=== PATIENT | female | born 1940 | race Caucasian/White ===

== ENCOUNTER 2018-12-27 12:16 | Outpatient (CLI) | payer MEDICARE, OTHER ==
--- NOTE | 2018-12-27 12:38 | RAD ---
EXAM: 2 views of the lumbosacral spine HISTORY: Low back pain COMPARISON: None FINDINGS: 2 views of the lumbosacral spine shows normal height and alignment of the vertebral bodies without fracture or subluxation. Moderate degenerative changes are seen throughout the lumbar spine with intervertebral disc space narrowing and osteophyte formation. Posterior facet arthrosis is seen in the lower lumbosacral spine. The sacroiliac joints are unremarkable. IMPRESSION: Degenerative changes of lumbar spine without acute osseous abnormality.
== END 2018-12-27 12:17 | disposition home or self-care (01) ==
LOC: BICRAD 12:16
PROVIDERS: ATTEND Internal Medicine Rheumatology
DX: M47.16 Other spondylosis with myelopathy, lumbar region (principal)
CPT/HCPCS: 72100

== ENCOUNTER 2019-01-09 10:13 | Outpatient (CLI) | payer MEDICARE ==
--- NOTE | 2019-01-09 12:22 | MRI ---
MR the lumbar spine without contrast INDICATION: Lumbar spondylosis with myelopathy COMPARISON: None. TECHNIQUE: Multiplanar multisequence MR images were obtained of lumbar spine without IV contrast. FINDINGS: Bone marrow: There are laminectomy changes involving the left L4 and L5 vertebral levels. Bone marrow signal intensity appears within normal limits. Distal spinal cord and conus: Normal. The conus seen to terminate at L1. Visualized retroperitoneum and paraspinal soft tissues: There is an 8 mm cyst involving superior pole of the right kidney. Vertebral levels: L5-S1: There is a broad-based disc osteophyte complex with loss of disc space height inducing mild to moderate right and severe left neural foraminal narrowing.. L4-5: There is a broad-based disc osteophyte complex with facet joint degenerative change and loss of disc space height inducing mild right and moderate left neural foraminal narrowing L3-4: There is a broad-based disc bulge with facet hypertrophy inducing mild bilateral neural foramin al narrowing L2-3: There is a broad-based bulge with facet hypertrophy inducing mild right neural foraminal narrow ing L1-L2: There is a broad-based bulge with facet hypertrophy but no appreciable central canal or neural foraminal narrowing. T12-L1: There is a broad-based disc bulge but no appreciable central canal or neural foraminal narrow ing. IMPRESSION: 1. Moderate spondylosis of the lumbar spine. 2. Moderate right and severe left neural foraminal narrowing at L5-S1. 3. Mild right and moderate left neural foraminal narrowing at L4-5. 4. Mild bilateral neural foraminal narrowing at L3-4. 5. Mild right neural foraminal narrowing at L2-3.
== END 2019-01-09 10:14 | disposition home or self-care (01) ==
LOC: BICMRI 10:13
PROVIDERS: ATTEND Internal Medicine Rheumatology
DX: M47.16 Other spondylosis with myelopathy, lumbar region (principal); M48.07 Spinal stenosis, lumbosacral region; M48.061 Spinal stenosis, lumbar region without neurogenic claudication
CPT/HCPCS: 72148

== ENCOUNTER 2019-02-25 08:37 | Outpatient (CLI) | payer MEDICARE ==
--- NOTE | 2019-02-25 10:19 | MRI ---
EXAM: MRI Thoracic Spine WO Con PROVIDED CLINICAL HISTORY: Bilateral leg weakness and back pain for 5 years. Symptoms are gradually getting worse. COMPARISON: None FINDINGS: There are postsurgical changes of the cervical spine with evidence of metallic susceptibility artifac t likely related to anterior cervical fusion. There is a rounded focus of increased T1 and T2-weighted signal intensity seen in the T2 vertebral body most suggestive of a small hemangioma. The re is mild heterogeneity of the bone marrow which is nonspecific. The spinal cord is normal in contour and signal intensity. The conus medullaris terminates at the T12 -L1 level. There is a minimal central disc protrusion at the T3-4 level which results in slight effacement of ve ntral subarachnoid space. Neural foramina are patent this level. There are mild disc osteophyte complexes at the T10-11, T11-T12, and T12-L1 levels which result in mi ld effacement of the ventral subarachnoid spaces at these levels. Facet hypertrophic changes are present at the T11-12 and T12-L1 levels, greater on the right. There is no significant neural foramin al narrowing seen throughout the thoracic spine. Paravertebral soft tissues have a normal MRI appearance. Prominent motion artifact involving the parenchymal organs and the upper abdomen, but there are subce ntimeter increased T2-weighted signal intensity foci present within the visualized liver likely related to hepatic cysts. Hypodense hepatic lesions were seen on the prior noncontrast CT abdomen on 02/15/2017. Small subcentimeter increased T2-weighted signal intensity exophytic lesion is seen in the superior pole right kidney which was also seen on prior CT exam and likely represents a small cys t as well. IMPRESSION: 1. Scattered disc degenerative changes in the thoracic spine, greater in the lower thoracic spine. Ho wever, there is no significant central canal or neural foraminal narrowing at any level. 2. Increased T2-weighted signal intensity lesions within the liver which correspond to hypodense lesi ons seen in the liver on noncontrast CT exam in 2017 and likely represent small cysts. 3. Small superior pole right renal cyst.
== END 2019-02-25 08:38 | disposition home or self-care (01) ==
LOC: BICMRI 08:37
PROVIDERS: ATTEND Neurological Surgery
DX: R29.898 Other symptoms and signs involving the musculoskeletal system (principal); M47.814 Spondylosis without myelopathy or radiculopathy, thoracic region; N28.1 Cyst of kidney, acquired; K76.9 Liver disease, unspecified
CPT/HCPCS: 72146

== ENCOUNTER 2020-08-18 14:27 | Outpatient (CLI) | payer MEDICARE | END 2020-08-18 14:28 | disposition home or self-care (01) | LOC: BICCT 14:27 | PROVIDERS: ATTEND Neurological Surgery | DX: M53.3 Sacrococcygeal disorders, not elsewhere classified (principal); M54.5 Low back pain; M16.0 Bilateral primary osteoarthritis of hip; M47.816 Spondylosis without myelopathy or radiculopathy, lumbar region; K57.30 Diverticulosis of large intestine without perforation or abscess without bleeding; D25.9 Leiomyoma of uterus, unspecified; M51.36 Other intervertebral disc degeneration, lumbar region; M51.37 Other intervertebral disc degeneration, lumbosacral region | CPT/HCPCS: 72131; 72192 ==

== ENCOUNTER 2021-10-08 08:50 | Outpatient (CLI) | payer MEDICARE | END 2021-10-08 08:51 | disposition home or self-care (01) | LOC: BICRAD 08:50 | PROVIDERS: ATTEND Neurological Surgery | DX: M54.50 Low back pain, unspecified (principal); M47.816 Spondylosis without myelopathy or radiculopathy, lumbar region | CPT/HCPCS: 72110 ==

== ENCOUNTER 2021-10-29 15:33 | Observation (INO) | payer MEDICARE ==
[2021-10-29 16:46] VITALS: BMI 33.3
[2021-10-29] MEDS ORDERED: Ondansetron ODT 4 MG TAB PO PRN (19:16)
[2021-10-29] MEDS ORDERED: Ondansetron PF 4 MG/2 ML Vial IVP PRN (19:16)
[2021-10-29] MEDS ORDERED: Acetaminophen 325 MG TAB PO PRN (19:16)
[2021-10-29] MEDS ORDERED: Nitroglycerin 0.4 MG TAB (25 Tab Bottle) SL PRN (19:17)
[2021-10-29] MEDS ORDERED: hydrALAZINE 20 MG/ML VIAL SLOW IVP PRN (19:19)
[2021-10-29] MEDS ORDERED: Electrolyte Replacement Protocol 1 EACH FS SCH (19:30)
[2021-10-29] MEDS: Nitroglycerin 2% Ointment 1 INCH/1 GM Packet TOP SCH (21:06)
[2021-10-30] MEDS: Nitroglycerin 2% Ointment 1 INCH/1 GM Packet TOP SCH ×3 (04:53→20:36)
[2021-10-30 04:57] LABS: #Eosinphils 0.2 thou/uL (0.0-0.7); #Lymphocytes 1.5 thou/uL (1.20-3.40); #Monocytes 0.6 thou/uL (0.11-0.59); #Neutrophils 2.8 thou/uL (1.40-6.50); %Basophils 0.9 % (0.0-1.0); %Eosinophils 4.5 % (0.0-10.0); %Lymphocytes 28.6 % (21.0-51.0); %Monocytes 12.4 % (0.0-10.0); %Neutrophils 53.6 % (42.0-75.0); Hemoglobin 15.2 g/dL (12.0-16.0); Mean Corpuscular HGB CONC 33.1 g/dL (32.0-36.0); Mean Corpuscular Hemoglobin 32.3 pg (27.0-31.0); Mean Corpuscular Volume 97.4 fL (78.0-98.0); Platelet Count 171 thou/uL (130-400); RBC Distribution Width 11.7 % (11.5-14.5); Red Blood Cell (RBC) Count 4.72 mill/uL (4.20-5.40); White Blood Cell (WBC) Count 5.1 thou/uL (4.8-10.8)
[2021-10-30 05:49] LABS: LDL Cholesterol, Calculated 197 mg/dL; Triglycerides 242 mg/dL (Less than 150)
[2021-10-30 05:58] LABS: Anion Gap 14 mmol/L (10-20); BUN (Urea Nitrogen) 13 mg/dL (9.8-20.1); Calc. Creatinine Clearance 99 mL/min (70-130); Calcium 9.2 mg/dL (7.8-10.44); Carbon Dioxide 22 mmol/L (23-31); Cardiac Risk 7.5 (Less than 4.5); Chloride 109 mmol/L (98-107); Cholesterol 286 mg/dl (< 200 Desired); Estimated GFR 88; Glucose 90 mg/dL (83-110); HDL Cholesterol 38 mg/dL (>60 Neg Risk); Magnesium 2.2 mg/dL (1.6-2.6); Sodium 141 mmol/L (136-145)
[2021-10-30] MEDS: Clopidogrel Bisulfate 75 MG TAB PO SCH (07:52)
[2021-10-30] MEDS ORDERED: Clopidogrel Bisulfate 75 MG TAB PO SCH (09:00)
[2021-10-30] MEDS: Metoprolol Tartrate 25 MG TAB PO SCH ×2 (09:28→20:33)
[2021-10-30] MEDS: Amlodipine 5 MG TAB PO SCH (09:28)
[2021-10-30] MEDS: Benzonatate 100 MG CAP PO SCH (20:32)
[2021-10-30] MEDS: Heparin 5,000 UNITS/ML VIAL SC SCH (20:35)
[2021-10-30] MEDS ORDERED: Rosuvastatin 20 MG TAB PO SCH (21:00)
[2021-10-31] MEDS: Nitroglycerin 2% Ointment 1 INCH/1 GM Packet TOP SCH ×2 (05:15→14:06)
[2021-10-31 05:39] LABS: Hemoglobin 15.5 g/dL (12.0-16.0); Lymphocytes 33 % (21-51); MDiff Complete? YES; Mean Corpuscular HGB CONC 32.8 g/dL (32.0-36.0); Mean Corpuscular Volume 97.5 fL (78.0-98.0); Mean Platelet Volume 9.3 fL (7.4-10.4); Monocytes 9 % (0-10); Neutrophil 54 % (42-75); Platelet Count 187 thou/uL (130-400); Platelet Morphology Comment Appears Adequate; RBC Distribution Width 11.9 % (11.5-14.5); RBC Morphology Normal; Reactive Lymphocytes 4 % (0-10); Red Blood Cell (RBC) Count 4.84 mill/uL (4.20-5.40); White Blood Cell (WBC) Count 5.4 thou/uL (4.8-10.8)
[2021-10-31 07:32] LABS: Anion Gap 14 mmol/L (10-20); BUN (Urea Nitrogen) 21 mg/dL (9.8-20.1); Calc. Creatinine Clearance 95 mL/min (70-130); Calcium 9.5 mg/dL (7.8-10.44); Carbon Dioxide 21 mmol/L (23-31); Chloride 111 mmol/L (98-107); Estimated GFR 87; Glucose 93 mg/dL (83-110); Potassium 4.7 mmol/L (3.5-5.1); Sodium 141 mmol/L (136-145)
[2021-10-31] MEDS: Clopidogrel Bisulfate 75 MG TAB PO SCH (08:03)
[2021-10-31] MEDS: Heparin 5,000 UNITS/ML VIAL SC SCH ×2 (08:03→08:14)
[2021-10-31] MEDS: Amlodipine 5 MG TAB PO SCH (08:03)
[2021-10-31] MEDS: Benzonatate 100 MG CAP PO SCH ×2 (08:03→15:59)
[2021-10-31] MEDS ORDERED: ADENOSINE 60 MG/20 ML VIAL ONE (09:54)
[2021-10-31] MEDS: Metoprolol Tartrate 25 MG TAB PO SCH (10:12)
[2021-10-31 16:01] VITALS: BP 146/67; TEMP 97.9
== END 2021-10-31 19:12 | disposition home or self-care (01) ==
LOC: 2SW 16:20
PROVIDERS: ADMIT Hospitalist; ATTEND Hospitalist
DX: R07.89 Other chest pain (principal); R06.02 Shortness of breath; I25.10 Atherosclerotic heart disease of native coronary artery without angina pectoris; I10 Essential (primary) hypertension; E78.5 Hyperlipidemia, unspecified; I08.3 Combined rheumatic disorders of mitral, aortic and tricuspid valves; Z79.02 Long term (current) use of antithrombotics/antiplatelets; Z95.5 Presence of coronary angioplasty implant and graft; Z20.822 Contact with and (suspected) exposure to COVID-19
CPT/HCPCS: 78452; 80048 ×2; 80061; 83735; 84484; 85025 ×2; 93017; 93306; 94760; A9500; U0003; U0005; 36415; 96374; G0378; J0153; J0360; J1644

== ENCOUNTER 2022-03-22 13:24 | Outpatient (CLI) | payer MEDICARE ==
[~2022-03-22 13:24] MED LIST: Iopamidol 370 76% 100 ML VIAL ONE
== END 2022-03-22 13:25 | disposition home or self-care (01) ==
LOC: CT 13:24
PROVIDERS: ATTEND Internal Medicine Cardiovascular Disease
DX: I25.10 Atherosclerotic heart disease of native coronary artery without angina pectoris (principal); R91.1 Solitary pulmonary nodule; K76.9 Liver disease, unspecified
CPT/HCPCS: 71260; 82565; Q9967